=== PATIENT | male | born 1985 | race African-American/Black ===

== ENCOUNTER 2023-01-02 13:26 | Inpatient (IN) | payer MEDICAID ==
[~2023-01-02] VITALS: Ht 180.3 cm; Wt 69.1 kg
[2023-01-02 14:56] LABS: BASOPHILS % (AUTO) 1.4 % (0.0-2.0); EOSINOPHILS % (AUTO) 8.1 % (1.0-6.0); HEMATOCRIT 44.1 % (41-53); HEMOGLOBIN 14.3 g/dL (13.5-17.5); MEAN CORPUSCULAR HEMOGLOBIN 29.3 pg (26.0-34.0); MEAN CORPUSCULAR HGB CONC 32.5 G/dL (31.0-37.0); MEAN CORPUSCULAR VOLUME 90 fL (80-100); MONOCYTES # (AUTO) 0.5 K/uL (0.1-1.0); NEUTROPHILS # (AUTO) 1.9 K/uL (1.8-7.7); NEUTROPHILS % (AUTO) 39.5 % (40.0-70.0); PLATELET COUNT (AUTO) 270 K/uL (150-450); RED BLOOD CELL COUNT(AUTO) 4.88 MIL/uL (4.50-5.90); RED CELL DISTRIBUTION WIDTH 14.1 % (11.5-14.5); WHITE BLOOD COUNT (AUTO) 4.9 K/uL (4.5-11.0)
[2023-01-02 15:06] LABS: ANION GAP 5 mmol/L (8-16); CALCIUM, TOTAL 9.6 mg/dL (8.8-10.5); CARBON DIOXIDE 30 mmol/L (22-29); CHLORIDE 100 mmol/L (98-107); CREATININE 1.08 mg/dL (0.60-1.30); GLOMERULAR FILTR. RATE CALC > 60 mL/min (>60); GLUCOSE,RANDOM 89 mg/dL (70-110); POTASSIUM 3.9 mmol/L (3.5-5.1); SODIUM SERUM 135 mmol/L (136-145); UREA NITROGEN, BLOOD 18 mg/dL (7-18)
[2023-01-02 15:11] LABS: ALANINE AMINOTRANSFERASE 44 U/L (12-78); ALBUMIN 4.1 g/dL (3.4-5.0); ALKALINE PHOSPHATASE 51 U/L (46-116); ASPARTATE AMINOTRANSFERASE 21 U/L (15-37); BILIRUBIN,TOTAL 0.9 mg/dL (0.1-1.0); LIPASE 23 U/L (16-77); TOTAL PROTEIN, SERUM 8.2 g/dL (6.4-8.2)
[2023-01-02] MEDS ORDERED: SODIUM CHLORIDE 0.9% 100 ML ONE (15:12)
[2023-01-02] MEDS ORDERED: IOHEXOL 350 MG/ML 100 ML VIAL ONE (15:12)
[2023-01-02 15:29] LABS: APPEARANCE,URINE CLEAR (CLEAR); BILIRUBIN,URINE NEGATIVE (NEGATIVE); COLOR,URINE LIGHT YELLOW (YELLOW); GLUCOSE, URINE (UA) NEGATIVE (NEGATIVE); KETONES,URINE NEGATIVE (NEGATIVE); LEUKOCYTE ESTERASE ,URINE NEGATIVE (NEGATIVE); NITRATE,URINE NEGATIVE (NEGATIVE); OCCULT BLOOD,URINE NEGATIVE (NEGATIVE); PH,URINE 5.5 (5.0-8.0); PROTEIN,URINE NEGATIVE (NEGATIVE); SPECIFIC GRAVITIY, URINE 1.018 (1.003-1.030); UROBILINOGEN,URINE <=1.0 mg/dL (<=1.0)
[2023-01-02] MEDS ORDERED: PIPERACILLIN/TAZO 3.375 GM/D5W 50 ML IV ONE (15:30)
[2023-01-02 15:37] LABS: INR 1.1 (0.9-1.1); PROTHROMBIN TIME 11.4 SEC (9.4-11.6); TROPONIN I-HIGH SENSITIVITY 4 ng/L (<76)
[2023-01-02 15:46] LABS: B-TYPE NATRIURETIC PEPTIDE 27 pg/mL (0-100)
[2023-01-02 15:52] LABS: CREATINE KINASE, TOTAL ONLY 213 U/L (39-308)
[2023-01-02 16:24] LABS: COVID AG,FIA SOURCE NASAL SWAB
[2023-01-02 16:44] LABS: SARS-COV2 (COVID) ANTIGEN,FIA Negative (Negative)
[2023-01-02 19:05] LABS: TROPONIN I-HIGH SENSITIVITY 6 ng/L (<76)
[2023-01-02] MEDS ORDERED: CLINDAMYCIN 300 MG/D5% WATER 50 ML IV ONE (19:15)
[2023-01-02] MEDS ORDERED: RINGERS SOLUTION,LACTATED 1,000 ML IV SCH (19:15)
[2023-01-02] MEDS ORDERED: ACETAMINOPHEN 325 MG TABLET PO PRN (19:15)
[2023-01-02 19:34] VITALS: BP 119/79; PULSE 65; RESP 20; TEMP 98.4
[2023-01-02] MEDS ORDERED: SODIUM CHLORIDE 0.9% 250 ML IV ONE (20:33)
[2023-01-03 04:35] VITALS: BP 106/53; PULSE 54; RESP 18; TEMP 97.6
[2023-01-03] MEDS: CLINDAMYCIN 300 MG/D5% WATER 50 ML IV SCH ×3 (04:35→20:41)
[2023-01-03 05:57] LABS: BASOPHILS % (AUTO) 0.8 % (0.0-2.0); HEMATOCRIT 39.9 % (41-53); HEMOGLOBIN 12.9 g/dL (13.5-17.5); LYMPHOCYTES # (AUTO) 2.1 K/uL (1.0-4.8); LYMPHOCYTES % (AUTO) 36.6 % (22.0-44.0); MEAN CORPUSCULAR HEMOGLOBIN 29.2 pg (26.0-34.0); MEAN CORPUSCULAR HGB CONC 32.4 G/dL (31.0-37.0); MEAN CORPUSCULAR VOLUME 90 fL (80-100); MONOCYTES # (AUTO) 0.6 K/uL (0.1-1.0); NEUTROPHILS # (AUTO) 2.6 K/uL (1.8-7.7); NEUTROPHILS % (AUTO) 44.6 % (40.0-70.0); PLATELET COUNT (AUTO) 243 K/uL (150-450); RED BLOOD CELL COUNT(AUTO) 4.42 MIL/uL (4.50-5.90); RED CELL DISTRIBUTION WIDTH 13.5 % (11.5-14.5); WHITE BLOOD COUNT (AUTO) 5.8 K/uL (4.5-11.0)
[2023-01-03 06:08] LABS: ANION GAP 4 mmol/L (8-16); CARBON DIOXIDE 27 mmol/L (22-29); CHLORIDE 103 mmol/L (98-107); CREATININE 1.16 mg/dL (0.60-1.30); GLOMERULAR FILTR. RATE CALC > 60 mL/min (>60); GLUCOSE,RANDOM 100 mg/dL (70-110); SODIUM SERUM 134 mmol/L (136-145); UREA NITROGEN, BLOOD 21 mg/dL (7-18)
[2023-01-03 07:52] VITALS: BP 104/61; PULSE 93; RESP 20; TEMP 97.8; O2SAT 93
[2023-01-03] MEDS: HEPARIN SODIUM,PORCINE 5,000 UNITS/ML VIAL SQ SCH ×3 (08:00→23:46)
[2023-01-03 15:53] VITALS: BP 123/73; PULSE 53; RESP 20; TEMP 98.7
[2023-01-03 19:28] VITALS: BP 126/62; PULSE 55; RESP 20; TEMP 98.5
[2023-01-04 04:12] VITALS: BP 103/53; PULSE 59; RESP 18; TEMP 98
[2023-01-04] MEDS: CLINDAMYCIN 300 MG/D5% WATER 50 ML IV SCH ×2 (04:48→13:36)
[2023-01-04] MEDS: HEPARIN SODIUM,PORCINE 5,000 UNITS/ML VIAL SQ SCH ×2 (08:00→16:00)
[2023-01-04 08:16] VITALS: BP 103/59; PULSE 41; RESP 18; TEMP 98.5
[2023-01-04] MEDS ORDERED: CLIN300C58 PO (13:22)
[2023-01-04] MEDS ORDERED: ANUSHCS PR (13:23)
== END 2023-01-04 17:48 | disposition home or self-care (01) | DRG 254 ==
LOC: EMS 13:29 → EDBD 13:29 → 6S 18:21
PROVIDERS: ADMIT Internal Medicine; ATTEND Internal Medicine
DX: K60.3 Anal fistula (principal); E87.3 Alkalosis; D64.9 Anemia, unspecified; K62.89 Other specified diseases of anus and rectum; Z20.822 Contact with and (suspected) exposure to COVID-19
CPT/HCPCS: 71045; 74177; 80048; 80053; 81003; 82550; 83690; 83735; 83880; 84484; 85025; 85610; 85730; 87040; 87081; 93005; 99291; J1644; J2543; J3490; J7050; J7120; Q9967; 36415-L1; 36415-TC